=== PATIENT | male | born 1965 | race Caucasian/White ===

== ENCOUNTER 2018-09-24 08:14 | Emergency (ER) | payer BC | END 2018-09-24 08:47 | disposition home or self-care (01) | LOC: JERFT 08:14 ==

== ENCOUNTER 2019-04-08 04:22 | Emergency (ER) | payer BC ==
[2019-04-08 04:38] VITALS: BP 169/79; PULSE 59; TEMP 98.6; BMI 29.2
[2019-04-08] MEDS ORDERED: KETOROLAC TROMETHAMINE 30 MG/1 ML VIAL IVPUSH ONE (04:47)
[2019-04-08] MEDS ORDERED: ACETAMINOPHEN INJECTION 100 ML IVPB ONE (04:48)
[2019-04-08] MEDS ORDERED: ACETAMINOPHEN 1000 MG/100 ML VIAL (NON FORMULARY) IVPB ONE (04:48)
[2019-04-08] MEDS ORDERED: KETOROLAC TROMETHAMINE 30 MG/1 ML VIAL ONE (04:48)
--- NOTE | 2019-04-08 04:51 | PDOC ---
History of Present Illness - General Chief Complaint: Pain, Acute Stated Complaint: ABDOMINAL PAIN Time Seen by Provider: 04/08/19 04:51 - History of Present Illness Initial Comments: 04/08/19 04:51 Mr. Horton is a 53 yo male w/ pmh of IDDM who presents for evaluation of 1 day history of abdominal and L flank pain. Patient reports pain started suddenly and has been intermittent. Patient further reports urinating has been difficult and less than normal. Denies other symptoms at this time. The patient denies chest pain, shortness of breath, headache and dizziness. Denies fever, chills, nausea, vomit, diarrhea and constipation. Past History - Past Medical History Allergies/Adverse Reactions: Allergies Allergy/AdvReac Type Severity Reaction Status Date / Time No Known Allergies Allergy Verified 04/08/19 04:37 Home Medications: Ambulatory Orders Atorvastatin Ca [Lipitor] 20 mg PO HS 02/07/16 Gemfibrozil [Lopid -] 600 mg PO BID 02/07/16 Insulin Glargine,Hum.rec.anlog [Lantus Solostar PEN (NF)] 16 units SQ HS Lisinopril [Prinivil] 5 mg PO DAILY 02/07/16 metFORMIN HCL [Glucophage -] 850 mg PO BID 02/07/16 COPD: No Diabetes: Yes (niddm) - Immunization History Immunization Up to Date: Yes - Psycho Social/Smoking Cessation Hx Smoking History: Never smoked Have you smoked in the past 12 months: No If you are a former smoker, when did you quit?: 15 YEARS Information on smoking cessation initiated: No Hx Alcohol Use: No Drug/Substance Use Hx: No Substance Use Type: None Review of Systems - Review of Systems Comments:: 04/08/19 04:53 GENERAL/CONSTITUTIONAL: No fever or chills. No weakness. HEAD, EYES, EARS, NOSE AND THROAT: No change in vision. No ear pain or discharge. No sore throat. CARDIOVASCULAR: No chest pain or shortness of breath RESPIRATORY: No cough, wheezing, or hemoptysis. GASTROINTESTINAL: +Generalized abdominal and L flank plain. No nausea, vomiting , diarrhea or constipation. GENITOURINARY: +Urinary complaints as described. MUSCULOSKELETAL: No joint or muscle swelling or pain. No neck or back pain. SKIN: No rash NEUROLOGIC: No headache, vertigo, loss of consciousness, or change in strength/ sensation. ENDOCRINE: No increased thirst. No abnormal weight change HEMATOLOGIC/LYMPHATIC: No anemia, easy bleeding, or history of blood clots. ALLERGIC/IMMUNOLOGIC: No hives or skin allergy. *Physical Exam - Vital Signs Last Vital Signs Temp Pulse Resp BP Pulse Ox 98.6 F 59 L 22 H 169/79 100 04/08/19 04:37 04/08/19 04:37 04/08/19 04:37 04/08/19 04:37 04/08/19 04:37 - Physical Exam 04/08/19 04:53 GENERAL: Awake, alert, and fully oriented, in no acute distress HEAD: No signs of trauma, normocephalic, atraumatic EYES: PERRLA, EOMI, sclera anicteric, conjunctiva clear ENT: Auricles normal inspection, hearing grossly normal, nares patent, oropharynx clear without exudates. Moist mucosa NECK: Normal ROM, supple, no lymphadenopathy, JVD, or masses LUNGS: No distress, speaks full sentences, clear to auscultation bilaterally HEART: Regular rate and rhythm, normal S1 and S2, no murmurs, rubs or gallops, peripheral pulses normal and equal bilaterally. ABDOMEN: L flank and generalized abdominal TTP. Soft, nontender, normoactive bowel sounds. No guarding, no rebound. No masses EXTREMITIES: Normal inspection, normal range of motion, no edema. No clubbing or cyanosis. NEUROLOGICAL: Cranial nerves II through XII grossly intact. Normal speech, normal gait, no focal sensorimotor deficits SKIN: Warm, Dry, normal turgor, no rashes or lesions noted. ED Treatment Course - LABORATORY CBC & Chemistry Diagram: 04/08/19 04:40 04/08/19 04:40 - RADIOLOGY Radiology Studies Ordered: Category Date Time Status SPIRAL- RENAL-STONE CT [CT] Stat CT Scan 04/08/19 04:48 Ordered Medical Decision Making - Medical Decision Making 04/08/19 06:30 Mr. Horton is a 53 yo male w/ pmh as described who presents for evaluation of symptoms concerning for kidney stone. Patient evaluated with labs and CT spiral w/ no elucidating findings. Upon repeat evaluation patient's pain more localized to upper abdomen and more c/w GERD vs. Cardiac picture. EKG/cardiac labs added on and GI cocktail added to patient's workup. Further evaluation pending. 04/08/19 07:27 Patient signed out to Dr. Fitzgerald for further evaluation. Discharge - Discharge Information Problems reviewed: Yes Clinical Impression/Diagnosis: Abdominal pain Qualifiers: Abdominal location: unspecified location Qualified Code(s): R10.9 - Unspecified abdominal pain - Follow up/Referral - Patient Discharge Instructions - Post Discharge Activity
[2019-04-08 04:53] LABS: BASO % 0.5 % (0-2.0); EOS % 1.6 % (0-4.5); HEMATOCRIT 39.7 % (35.4-49); HEMOGLOBIN 13.4 GM/dL (11.7-16.9); LYMPH % 22.4 % (8-40); MCH 30.9 pg (25.7-33.7); MCHC 33.7 g/dl (32.0-35.9); MEAN CELL VOLUME 91.6 fl (80-96); MEAN PLT VOLUME 9.2 fl (7.5-11.1); MONO % 7.9 % (3.8-10.2); NEUT % 67.6 % (42.8-82.8); PLATELET COUNT 282 K/MM3 (134-434); RBC 4.34 M/mm3 (4.00-5.60); RDW 14.1 % (11.9-15.9); WHITE BLOOD COUNT 7.7 K/mm3 (4.0-10.0)
[2019-04-08 05:19] LABS: URINE APPEARANCE CLEAR; URINE BILIRUBIN NEGATIVE (NEGATIVE); URINE COLOR YELLOW; URINE GLUCOSE (UA) 2+ (NEGATIVE); URINE KETONE NEGATIVE (NEGATIVE); URINE LEUK ESTERASE NEGATIVE (NEGATIVE); URINE NITRITE NEGATIVE (NEGATIVE); URINE PROTEIN NEGATIVE (NEGATIVE)
[2019-04-08 05:21] LABS: ALK PHOS 123 U/L (45-117); ANION GAP 6 MMOL/L (8-16); BILIRUBIN,TOTAL 0.7 mg/dL (0.2-1); CALCIUM 8.5 mg/dL (8.5-10.1); CHLORIDE 104 mmol/L (98-107); CO2 27 mmol/L (21-32); GLUCOSE,RANDOM 228 mg/dL (74-106); POTASSIUM 4.4 mmol/L (3.5-5.1); SGOT/AST 34 U/L (15-37); SGPT/ALT 65 U/L (13-61); SODIUM 137 mmol/L (136-145); TOT PROT 7.2 g/dl (6.4-8.2)
[2019-04-08] MEDS ORDERED: FAMOTIDINE 20 MG/50 ML IVPB 20 MG/50 ML MG IVPB ONE ×3 (05:31→06:33)
[2019-04-08] MEDS ORDERED: SODIUM CHLORIDE 0.9% 500 ML INFUS.BAG IV ONE (05:31)
--- NOTE | 2019-04-08 06:22 | PDOC ---
Attending Attestation - ED Attending Attestation I have performed the following: I have examined & evaluated the patient, The case was reviewed & discussed with the resident, I agree w/resident's findings & plan - HPI HPI: 04/08/19 20:22 Pt comes with epigastric abd pain. He is writhing in pain and says that he has flank pain also. But no dysuria and no hx of kidney stones. He has fam members with renal stones. Afebrile Pt is overweight - Physicial Exam PE: 04/08/19 20:23 Afebrile HEENT normal epig pain. flank pain is mild. Heart [id number] lungs CTAB neuro intact - Medical Decision Making 04/08/19 06:22 Patient Name: SHELTON LIAO THIS IS A PRELIMINARY REPORT FROM [facility] DATE OF SERVICE: 2019-04-08 05:33:18 IMAGES: [id number] EXAM: CT abdomen and pelvis without contrast HISTORY: Rule out renal stone COMPARISON: None. FINDINGS: Lung bases are clear. The visualized cardiac chambers are normal size and configuration. Normal unenhanced liver, gallbladder, pancreas, spleen, adrenal glands and kidneys. The stomach and abdominal small and large bowel are normal. There is no aortic aneurysm. There is no significant retroperitoneal lymphadenopathy. Mild mesenteric panniculitis is likely an incidental finding. The pelvic small and large bowel are normal. The appendix is normal. The urinary bladder and prostate gland are normal. No pelvic free fluid is identified. There is no significant pelvic lymphadenopathy. Small fat-containing left inguinal hernia is noted. IMPRESSION: No localizing signs for acute pathology 04/08/19 20:26 Pt will be signed out to the day team They will follow CXR EKG and cardiac enzymes. If normal, pt can go home. Pt 's pain may be gastritis also may be inguinal fat hernia
[2019-04-08] MEDS ORDERED: MAG HYDROX/AL HYDROX/SIMETH 30 ML UNIT-DOSE CUP PO ONE (06:28)
[2019-04-08] MEDS ORDERED: morphine CARPU-JECT 2 MG/1 ML DISP.SYRIN IVPUSH ONE (06:30)
[2019-04-08] MEDS ORDERED: ASPIRIN 325 MG ENTERIC COATED TABLET (FP) ONE (06:32)
[2019-04-08] MEDS ORDERED: MORPHINE SULFATE 2 MG/ML VIAL ONE (06:33)
[2019-04-08] MEDS ORDERED: MAG HYDROX/AL HYDROX/SIMETH 30 ML UNIT-DOSE CUP ONE (06:33)
[2019-04-08 07:20] LABS: LIPASE 136 U/L (73-393)
--- NOTE | 2019-04-08 07:34 | PDOC ---
*Physical Exam - Vital Signs Last Vital Signs Temp Pulse Resp BP Pulse Ox 98.6 F 59 L 22 H 169/79 100 04/08/19 04:37 04/08/19 04:37 04/08/19 04:37 04/08/19 04:37 04/08/19 04:37 ED Treatment Course - LABORATORY CBC & Chemistry Diagram: 04/08/19 04:40 04/08/19 04:40 - ADDITIONAL ORDERS Additional order review: Laboratory Results 04/08/19 04/08/19 04:40 04:40 Sodium 137 Potassium 4.4 Chloride 104 Carbon Dioxide 27 Anion Gap 6 L BUN 17.0 Creatinine 1.0 Est GFR (CKD-EPI)AfAm 99.15 Est GFR (CKD-EPI)NonAf 85.55 Random Glucose 228 H Calcium 8.5 Total Bilirubin 0.7 AST 34 ALT 65 H Alkaline Phosphatase 123 H Creatine Kinase 156 Troponin I < 0.02 Total Protein 7.2 Albumin 4.0 Lipase 136 Urine Color Yellow Urine Appearance Clear Urine pH 6.0 Ur Specific [place] 1.030 Urine Protein Negative Urine Glucose (UA) 2+ H Urine Ketones Negative Urine Blood Negative Urine Nitrite Negative Urine Bilirubin Negative Urine Urobilinogen 1.0 Ur Leukocyte Esterase Negative 04/08/19 04:40 RBC 4.34 MCV 91.6 MCHC 33.7 RDW 14.1 MPV 9.2 Neutrophils % 67.6 Lymphocytes % 22.4 Monocytes % 7.9 Eosinophils % 1.6 Basophils % 0.5 - Medications Given in the ED: ED Medications Discontinued Medications Generic Name Dose Route Start Last Admin Trade Name Freq PRN Reason Stop Dose Admin Acetaminophen 1,000 mg 04/08/19 04:48 04/08/19 04:55 Ofirmev Injection - IVPB 04/08/19 04:49 1,000 mg ONCE ONE Administration Al Hydroxide/Mg Hydroxide 30 ml 04/08/19 06:28 04/08/19 06:36 Mylanta Oral Suspension - PO 04/08/19 06:29 30 ml ONCE ONE Administration Famotidine/Sodium Chloride 20 mg in 50 mls @ 100 mls/hr 04/08/19 05:31 06:37 Pepcid 20 Mg Premixed Ivpb - IVPB 04/08/19 06:00 Not Given ONCE ONE Famotidine/Sodium Chloride 20 mg in 50 mls @ 100 mls/hr 04/08/19 06:28 06:36 Pepcid 20 Mg Premixed Ivpb - IVPB 04/08/19 06:57 100 mls/hr ONCE ONE Administration Ketorolac Tromethamine 30 mg 04/08/19 04:47 04/08/19 04:55 Toradol Injection - IVPUSH 04/08/19 04:48 30 mg ONCE ONE Administration Morphine Sulfate 2 mg 04/08/19 06:30 04/08/19 06:37 Morphine Injection - IVPUSH 04/08/19 06:31 2 mg ONCE ONE Administration Sodium Chloride 1,000 ml 04/08/19 05:31 04/08/19 05:36 Normal Saline - IV 04/08/19 05:32 1,000 ml ONCE ONE Administration Medical Decision Making - Medical Decision Making 04/08/19 07:41 Patient signed out by Dr. Lim ([id number]) 53 y/o male w abdominal and flank pain. Dry CT negative for stone. EKG non- ischemic. Labs pending for atypical presentation of ACS Troponin (-) x1 Patient reassesed @ bedside Symptomatically improved s/p GI cocktail Will discharge home w/primary care referral. Discharge - Discharge Information Problems reviewed: Yes Clinical Impression/Diagnosis: Abdominal pain Qualifiers: Abdominal location: unspecified location Qualified Code(s): R10.9 - Unspecified abdominal pain Condition: Fair Disposition: HOME - Admission No - Follow up/Referral - Patient Discharge Instructions Patient Printed Discharge Instructions: Type 2 Diabetes Additional Instructions: Hemos proporcionado carolyn referencia a un mdico de atencin primaria. Michael carolyn kay para carolyn evaluacin adicional en los prximos 3 walker. Regrese al servicio de urgencias por cualquier sntoma nuevo / que empeore / relacionado. We have provided a referral to a primary care physician. Please make an appointment for further evaluation in the next 3 days. Return to the ED for any new/worsening/concerning symptoms. - Post Discharge Activity
[2019-04-08] MEDS ORDERED: ASPIRIN 325 MG TABLET PO SCH (10:00)
--- NOTE | 2019-04-08 14:11 | EKG ---
Test Reason : Blood Pressure : / mmHG Vent. Rate : 062 BPM Atrial Rate : 062 BPM P-R Int : 162 ms QRS Dur : 104 ms QT Int : 422 ms P-R-T Axes : 038 028 030 degrees QTc Int : 428 ms SINUS RHYTHM WITH OCCASIONAL PREMATURE VENTRICULAR COMPLEXES OTHERWISE NORMAL ECG Confirmed by MD MICHAEL, KARENA ([id number]) on 04/08/2019 2:11:03 PM Referred By: Confirmed By:KARENA RODRIGUEZ MD
== END 2019-04-08 10:34 | disposition home or self-care (01) ==
LOC: JER 04:22
PROC: 3E033GC Introduction of Other Therapeutic Substance into Peripheral Vein, Percutaneous Approach (ICD-10-PCS; principal; 2019-04-08)
PROC: 3E033NZ Introduction of Analgesics, Hypnotics, Sedatives into Peripheral Vein, Percutaneous Approach (ICD-10-PCS; 2019-04-08)
DX: R10.84 Generalized abdominal pain (principal); E11.9 Type 2 diabetes mellitus without complications; Z79.4 Long term (current) use of insulin; E78.00 Pure hypercholesterolemia, unspecified
CPT/HCPCS: 36415; 71046-TC-FY; 74176-TC; 80053; 81003; 82550; 82553; 83690; 84484; 85025; 87086; 93005; 93010; 99285-25; J0131

== ENCOUNTER 2020-03-20 18:26 | Emergency (ER) | payer BC ==
[2020-03-20 18:55] VITALS: BMI 27.4
[2020-03-20] MEDS ORDERED: ACETAMINOPHEN 1000 MG/100 ML VIAL (NON FORMULARY) IVPB ONE (20:18)
[2020-03-20] MEDS ORDERED: ACETAMINOPHEN INJECTION 100 ML IVPB ONE (20:25)
[2020-03-20 21:02] LABS: BASO % 0.6 % (0-2.0); EOS % 0.6 % (0-4.5); HEMATOCRIT 40.9 % (35.4-49); HEMOGLOBIN 13.7 GM/dL (11.7-16.9); LYMPH % 21.6 % (8-40); MCH 30.8 pg (25.7-33.7); MCHC 33.5 g/dl (32.0-35.9); MEAN PLT VOLUME 9.1 fl (7.5-11.1); MONO % 7.4 % (3.8-10.2); NEUT % 69.8 % (42.8-82.8); PLATELET COUNT 294 K/MM3 (134-434); RBC 4.44 M/mm3 (4.00-5.60); RDW 14.3 % (11.9-15.9); WHITE BLOOD COUNT 9.4 K/mm3 (4.0-10.0)
[2020-03-20 21:20] LABS: CHLORIDE 104 mmol/L (98-107); SODIUM 138 mmol/L (136-145)
[2020-03-20 21:21] LABS: CALCIUM 9.2 mg/dL (8.5-10.1)
[2020-03-20 21:22] LABS: ALBUMIN 4.4 g/dl (3.4-5.0); ANION GAP 4 MMOL/L (8-16); BLOOD UREA NITROGEN 20.4 mg/dL (7-18); CO2 30 mmol/L (21-32); GLUCOSE,RANDOM 89 mg/dL (74-106)
[2020-03-20 21:25] LABS: SGOT/AST 42 U/L (15-37); SGPT/ALT 83 U/L (13-61)
[2020-03-20 21:26] LABS: CREATININE 0.8 mg/dL (0.55-1.3)
[2020-03-20 21:28] LABS: ALK PHOS 77 U/L (45-117)
[2020-03-20 21:54] VITALS: BP 120/78; PULSE 89; TEMP 98.2
== END 2020-03-20 22:07 | disposition home or self-care (01) ==
LOC: JER 18:26
PROC: 3E0333Z Introduction of Anti-inflammatory into Peripheral Vein, Percutaneous Approach (ICD-10-PCS; principal; 2020-03-20)
DX: R51.9 Headache, unspecified (principal)
CPT/HCPCS: 36415; 80053; 82962; 84443; 84484; 85025; 99284-25; J0131

== ENCOUNTER 2022-02-05 23:03 | Emergency (ER) | payer BC ==
[2022-02-05 23:09] VITALS: BP 151/85; PULSE 75; RESP 18; TEMP 100.2
[2022-02-06] MEDS ORDERED: AZITHROMYCIN 250 MG TABLET PO ONE (00:58)
[2022-02-06] MEDS ORDERED: DEXAMETHASONE 4 MG TABLET (FP) PO ONE (00:59)
[2022-02-06] MEDS ORDERED: DEXAMETHASONE SOD PHOSPHATE 10 MG/1 ML VIAL ONE (01:03)
[2022-02-06] MEDS ORDERED: AZITHROMYCIN 250 MG TABLET ONE (01:04)
== END 2022-02-06 01:54 | disposition home or self-care (01) ==
LOC: JER 23:03
DX: U07.1 COVID-19 (principal); R07.9 Chest pain, unspecified
CPT/HCPCS: 71046-TC-FY; 93005; 93010; 99284-25

== ENCOUNTER 2023-02-05 04:02 | Emergency (ER) | payer SELFPAY ==
[2023-02-05 04:13] VITALS: BP 132/69; PULSE 69; RESP 18; TEMP 97; BMI 274.5
[2023-02-05] MEDS ORDERED: diphenhydrAMINE HCL 25 MG CAPSULE (FP) PO ONE ×2 (04:38→04:40)
[2023-02-05] MEDS ORDERED: PERMETHRIN 5% TOPICAL CREAM 60 GM TUBE TP ONE (04:47)
== END 2023-02-05 05:19 | disposition home or self-care (01) ==
LOC: JER 04:02
DX: R21 Rash and other nonspecific skin eruption (principal); L29.9 Pruritus, unspecified; S80.861A Insect bite (nonvenomous), right lower leg, initial encounter; S80.862A Insect bite (nonvenomous), left lower leg, initial encounter; B88.9 Infestation, unspecified; W57.XXXA Bitten or stung by nonvenomous insect and other nonvenomous arthropods, initial encounter
CPT/HCPCS: 99283-25